=== PATIENT | female | born 1990 ===

== ENCOUNTER 2017-03-18 16:11 | Emergency (ER) | payer SELFPAY ==
[2017-03-18 16:35] VITALS: BP 114/48
[2017-03-18] MEDS ORDERED: Acetaminophen TAB* 325 MG PO ONE (16:46)
--- NOTE | 2017-03-18 17:18 | UC ---
Skin Complaint HPI - HPI Summary HPI Summary: Pt presents to with her mom. Pt states was playing outside with her mai when dog bit her arm instead of her toy. Pt with with, ecchymosis and wound to left arm. Pt is RHD. Pt denies paresthesia, weakness. 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 Wound was cleansed with water at home. Not immunocompromised. Unknown last tetanus. Unknown if dog's vaccinations are up to date. Dog is patient's dog. No abnormal behavior Pt's medications reviewed this visit - History of Current Complaint Chief Complaint: UCBiteInjury Time Seen by Provider: 03/18/17 16:45 Stated Complaint: LEFT ARM - DOG BITE Hx Obtained From: Patient Hx Last Menstrual Period: 02/22/17 Onset/Duration: Sudden Onset Skin Exposure Onset/Duration: Minutes Ago Timing: Constant Onset Severity: Mild Current Severity: None Pain Intensity: 4 Pain Scale Used: 0-10 Numeric Aggravating Factor(s): Nothing Alleviating Factor(s): Nothing Associated Signs & Symptoms: Positive: Negative - Allergy/Home Medications Allergies/Adverse Reactions: Allergies Allergy/AdvReac Type Severity Reaction Status Date / Time No Known Allergies Allergy Verified 03/18/17 16:35 Review of Systems Constitutional: Negative Skin: Bruising, Other - wound Is Patient Immunocompromised?: No All Other Systems Reviewed And Are Negative: Yes PMH/Surg Hx/FS Hx/Imm Hx Previously Healthy: Yes - Surgical History Surgical History: None - Family History Known Family History: Positive: Hypertension - Social History Occupation: Employed Full-time Lives: With Family Alcohol Use: Occasionally Substance Use Type: None Smoking Status (MU): Never Smoked Tobacco Physical Exam Triage Information Reviewed: Yes Appearance: Well-Appearing, No Pain Distress, Well-Nourished Vital Signs: Initial Vital Signs Temp 98.8 F 03/18/17 16:31 Pulse 68 03/18/17 16:31 Resp 16 03/18/17 16:31 BP 114/48 03/18/17 16:31 Pulse Ox 100 03/18/17 16:31 Vital Signs Reviewed: Yes Eye Exam: Normal Eyes: Negative: Discharge ENT: Positive: Hearing grossly normal Respiratory: Positive: No respiratory distress, No accessory muscle use Cardiovascular: Positive: Other: - 2+ radial, 2+ ulnar CBT <2 sec Musculoskeletal: Positive: Other: - + flext/ext elbow, wrist + pronate/supinate Neurological Exam: Normal Neurological: Positive: Other: - + thumb up, a ok, finger spread, finger cross + gross senation Psychological Exam: Normal Skin: Positive: Other - Pt with ecchymosis on both volar and dorsal mid forearm , left pt with non suturable abraison to volar aspect Pt with small skin avulsion dosrum non-suturable wound Course/Dx - Course Course Of Treatment: Pt with a dog bite from her animal. Pt unknown last tdap - declined booster - may have had with wound 4 years ago. augmentin. wound cleansed. reveiwed with pt and mom s/s infection and wound care. dog bite form complete - aware will receive call from health department. Pt and mom comfortable and abdoulaye greement with plan - Diagnoses Provider Diagnoses: dog bite wound. contusion Discharge - Discharge Plan Condition: Stable Disposition: HOME Prescriptions: Amoxicillin/Clavulanate TAB* [Augmentin TAB 875*] 875 mg PO BID #14 tab Patient Education Materials: Animal Bite (ED) Referrals: Usama BARKER,Cesilia [Primary Care Provider] - Additional Instructions: - Take antibiotics as prescribed until gone - you will likely get diarrhea from this medication - Okay to alternate ibuprofen (advil, Motrin) and tylenol every 3 hours as needed for pain - cover your wound with a thin layer of antibotic ointment and a bandage, 2-3 times a day - monitor your wound with signs of infection - red streaking, odor, pus, drainage - The health department will contact you for follow-up - call your doctor or return with questions or concerns
== END 2017-03-18 17:22 | disposition home or self-care (01) ==
LOC: UCCORT 16:11
DX: S41.152A Open bite of left upper arm, initial encounter (principal); W54.0XXA Bitten by dog, initial encounter; Y92.9 Unspecified place or not applicable
CPT/HCPCS: 99202; A9270-GY; G0463